=== PATIENT | male | born 1985 | race Two or more races ===

== ENCOUNTER 2023-09-02 15:17 | Emergency (ER) | payer OTHER ==
[~2023-09-02] VITALS: Ht 175.3 cm; Wt 90.7 kg
[2023-09-02 16:50] LABS: HEMATOCRIT 49.7 % (39.0-48.0); MEAN CORPUSCULAR HGB CONC 34.2 g/dl (32.0-36.0); PLATELET COUNT 162 K/uL (150-450); RED BLOOD COUNT 6.06 M/uL (4.00-6.00); RED CELL DISTRIBUTION WIDTH 13.6 % (11.5-14.5)
[2023-09-02 17:13] LABS: ALBUMIN 4.1 gm/dL (3.4-5.0); BILIRUBIN TOTAL 1.13 mg/dL (0.3-1.2); CALCIUM 9.5 mg/dL (8.5-10.1); CREATININE SERUM 1.39 mg/dL (0.70-1.30); GFR 57.19; GLOBULINA 3.6 G/DL (2.4-3.5); POTASSIUM 3.6 mEq/L (3.5-5.1); TOTAL PROTEIN 7.7 gm/dL (6.4-8.2)
[2023-09-02 18:54] LABS: URINE APPEARANCE Clear; URINE BILIRRUBIN Negative (NEGATIVE); URINE COLOR Yellow; URINE GLUCOSE Negative (NEGATIVE); URINE LEUKOCYTE Negative; URINE NITRATE Negative; URINE PROTEIN 30 (NEGATIVE)
[2023-09-02 18:58] LABS: URINE RBC 174.3 uL (0.0-20.8)
[2023-09-02 19:04] LABS: URINE BACTERIA 3.7 uL (0.0-1933); URINE BLOOD TRACE; URINE EPITHELIAL CELLS 0.4 uL (0.0-38.8); URINE WBC 1.7 uL (0.0-23.2)
== END 2023-09-02 20:01 | disposition home or self-care (01) ==
LOC: ER 15:18
PROVIDERS: General Practice
DX: A05.9 Bacterial foodborne intoxication, unspecified (principal); Z20.822 Contact with and (suspected) exposure to COVID-19